=== PATIENT | male | born 1955 | race Caucasian/White ===

== ENCOUNTER → 2020-04-07 11:34 | Outpatient (BNVA) | payer OTHER, SELFPAY | PROVIDERS: Family Provider Family Medicine; PCP Family Medicine; Visit Provider Family Medicine | DX: Z20.828 Contact with and (suspected) exposure to other viral communicable diseases (principal) | CPT/HCPCS: 87635 ==

== ENCOUNTER 2020-11-30 12:12 | Emergency (ER) | payer OTHER, SELFPAY ==
[2020-11-30 12:28] VITALS: BP 147/51; PULSE 75; RESP 20; TEMP 36.7; O2SAT 96; BMI 31.9
--- NOTE | 2020-11-30 12:52 | XR_ITS ---
WS: [id number] Exam: XR chest 1V portable [id number] Date/Time of Exam: 11/30/2020 12:56 PM Reason For Exam: reduced breath sounds/ copd Comparison 06/05/2019. The lungs are fully inflated and clear. Normal cardiomediastinal structures for technique. No pleural effusions. Several old right-sided rib fractures. XR/XR chest 1V portable [id number] IMPRESSION: 1. No acute cardiopulmonary finding. No change.
--- NOTE | 2020-11-30 12:53 | ECG_ITS ---
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 Measurements Intervals [place] Rate: 62 P: [place]: QRS: 37 QRSD: 86 T: 30 QT: 337 QTc: 345 Interpretive Statements ATRIAL FIBRILLATION Compared to ECG 06/05/2019 16:23:57 Myocardial infarct finding no longer present Electronically Signed On 11-30-2020 17:31:09 CDT by Rufus Hernandez M.D. [id number]
--- NOTE | 2020-11-30 12:55 | W.ED.GENADLT ---
HPI - General Adult General: Chief complaint: General Medical Stated complaint: dizzy, high heart rate Time Seen by Provider: 11/30/20 12:43 History of Present Illness: HPI narrative: The patient is a 65-year-old male with past medical history A. fib on Xarelto, COPD, hypertension. He comes to the ER complaining he feels slightly dizzy and had an episode of heart rate where his heart was in the 150s for a very short episode this morning. 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 He also admits to having occasional cold sweats and using his inhaler more frequently. Severity: mild Relieving factors: rest Exacerbating factors: other (Exertion) Associated symptoms: Reports palpitations; Deny chest pain, confusion, dyspnea, headache(s) or rash Review of Systems General: Reports: 10 or more systems reviewed and unremarkable except in HPI and below Const: Reports: fatigue Eyes: Denies: change in vision, blurry vision or eye redness ENMT: Denies: throat pain, swelling of lips/tongue, ear or mastoid pain or nasal congestion Card: Reports: palpitations; Denies: chest pain Resp: Denies: dyspnea, productive cough or non-productive cough GI: Denies: abdominal pain, diarrhea or GI cramping : Denies: flank pain, urinary frequency or urinary urgency Musc: Denies: neck pain, back pain, extremity pain, joint pain, joint redness, limited range of motion or muscle weakness Skin/Breast: Denies: rash, pruritus, erythema, skin pain or skin tenderness Neuro: Denies: headache(s), numbness in extremities, weakness in extremities, sensory changes, difficulty walking, dizziness, confusion or Slurred speech present Psych: Denies: anxiety or depression Endo: Denies: polyuria All/Imm: Denies: urticaria, throat swelling or tongue swelling PFSH ED PFSH: Medical History Alcohol dependence Anticoagulation adequate Asthma Atrial fibrillation Hyperlipidemia Obesity PTSD (post-traumatic stress disorder) Sleep apnea Surgical History H/O arthroscopic knee surgery H/O hernia repair History of appendectomy Family History Mother CAD (coronary artery disease) Other Congestive cardiac failure Social History Smoking and tobacco status: never smoked Alcohol intake: current Alcohol intake frequency: 3 or more drinks per day Lives independently: Yes Household members: spouse Housing: House Marital status: Physical Exam Const: COMMON NORMALS: no acute distress, average body habitus, patient oriented x3, no limitations, healthy appearing, alert and well nourished GENERAL APPEARANCE: cooperative, comfortable, well kempt and well developed ORIENTATION/CONSCIOUSNESS: Yes awake, Yes oriented to person, Yes oriented to place and Yes oriented to time HENMT: COMMON NORMALS: normocephalic, external ears normal and Normal external nose present HEAD & SCALP: normal to inspection and normocephalic NOSE: Normal external nose present EXTERNAL EAR: Yes external ears normal MOUTH: Normal oral and palatal mucosa present THROAT: posterior oropharynx normal Eye: COMMON NORMALS: Equal, round and reactive pupils present and EOMs intact bilaterally GENERAL EYE: appearance normal, both eyes and all related structures PUPIL: Yes Equal, round and reactive pupils present Neck/C-Spine: COMMON NORMALS: full ROM, no lymphadenopathy, no meningeal signs and no JVD GENERAL: Yes normal visual inspection Lymph: LYMPHATIC: no lymphadenopathy noted Chest: COMMONS NORMALS: normal inspection of the chest and normal palpation of entire chest wall Resp: COMMON NORMALS: normal respiratory effort, No retractions, No use of accessory muscles, clear to auscultation bilaterally and percussion normal EFFORT & INSPECTION: Yes able to speak in complete sentences AUSCULTATION: clear to auscultation bilaterally PERCUSSION: percussion normal Cardio: COMMON NORMALS: no JVD, regular rate, S1 normal heart sound present, S2 normal heart sound present and Peripheral pulses 2+ throughout RATE: regular rate RHYTHM: abnormal rhythm irregularly irregular HEART SOUNDS: S1 normal heart sound present and S2 normal heart sound present PERIPHERAL PULSES: Peripheral pulses 2+ throughout GI: COMMON NORMALS: Normal to inspection, nondistended, normoactive bowel sounds present, Soft to palpation, non-tender and no masses INSPECTION: Yes normal to inspection PALPATION: Yes Soft to palpation : COMMON NORMALS: Yes no CVA tenderness BLADDER/KIDNEY EXAM: Yes no CVA tenderness Back/Pelvis: COMMON NORMALS: no CVA tenderness, thoracic and lumbar spine normal to inspection, no thoracic nor lumbar tenderness and thoraco-lumbar ROM normal Extremity: COMMON NORMALS: normal to inspection, full ROM, capillary refill normal, no joint enlargement and no pedal edema GENERAL: Yes normal exam except as noted Neuro: COMMON NORMALS: patient oriented x3, CN's II-XII intact bilaterally, moves all extremities, no focal motor deficits, no sensory deficits noted and gait normal SENSORIUM/ORIENTATION: Yes alert, Yes oriented to person, Yes oriented to place and Yes oriented to time MENINGEAL SIGNS: Yes no meningeal signs Psych: COMMON NORMALS: mental status grossly normal, Normal thought process present, cooperative, normal affect and speech normal APPEARANCE: Yes well kempt ATTITUDE: Yes calm SPEECH: Yes normal speech THOUGHT PROCESS: Normal thought process present Skin: COMMON NORMALS: no rashes or lesions noted GENERAL SKIN EXAM: no rashes or lesions noted Course Vital Signs: Vital signs: Vital Signs Temperature 98.1 F 11/30/20 12:28 Pulse Rate 62 11/30/20 14:37 Respiratory Rate 15 11/30/20 14:35 Blood Pressure 149/96 11/30/20 12:57 Pulse Oximetry 97 11/30/20 14:35 MDM - General Adult MDM Narrative: Medical decision making narrative: Patient came in complaining of fatigue and weakness likely related to over exerting himself during a move for the past week. He complained of a significant episode of leg cramps as well. His CK is mildly elevated. He likely had rhabdo and is recovering from this. Recommended he drink fluids and rest. Also recommended he check his pulse with a pulse oximeter regularly as he had an episode of tachycardia today that went away when he sat down. It was a very short episode and he was asymptomatic of it. He has an appointment with cardiology in the next 2 weeks which is appropriate. ER with worsening symptoms at any time Lab Data: Labs: Lab Results 11/30/20 11/30/20 11/30/20 Range/Units 12:53 13:13 13:13 WBC 6.4 (4.0-10.0) 10^3/ uL RBC 4.83 (4.1-5.3) 10^6/u L Hgb 15.3 (11.7-16.6) g/dL Hct 44.6 (42.0-52.0) % MCV 92.3 (80-94) fL MCH 31.7 (28.0-34.0) pg MCHC 34.3 (30.0-36.0) g/dL RDW 12.2 (12.1-15.1) % Plt Count 148 (130-400) 10^3/c mm MPV 10.8 H (7.4-10.4) fL Neut % (Auto) 55.4 % Lymph % (Auto) 30.0 % [place] % (Auto) 11.3 % Eos % (Auto) 1.9 % Baso % (Auto) 1.1 % Neut # (Auto) 3.57 (1.8-7.7) 10^3/u L Lymph # (Auto) 1.9 (0.8-4.8) 10^3/u L [place] # (Auto) 0.7 (0.2-0.9) 10^3/u L Eos # (Auto) 0.1 (0.0-0.8) 10^3/u L Baso # (Auto) 0.1 (0.0-0.1) 10^3/u L Nucleated RBC % (a uto) 0 % Nucleated RBCs # 0.0 /100WBC D-Dimer (0-0.59) ug/mIFE U Sodium 132 L (136-145) mmol/L Potassium 4.1 (3.5-5.1) mmol/L Chloride 96 L (98-107) mmol/L Carbon Dioxide 25 (22-29) mmol/L Anion Gap 15.1 (5-19) BUN 10 (8-23) mg/dL Creatinine 0.8 (0.7-1.2) mg/dL GFR Calculation 97.6 (90-130) mL/min Glucose 88 (65-115) mg/dL Calculated Osmolal ity 272 L (285-295) mOsm/k g Calcium 9.1 (8.5-10.5) mg/dL Total Bilirubin 0.6 (0.15-1.2) mg/dL AST 40 (0-40) U/L ALT 34 (0-41) U/L Alkaline Phosphata se 58 (40-130) IU/L Creatine Kinase 603 H* (39-308) U/L Troponin T Baselin e (0-15) ng/L NT-Pro-B Natriuret Pep 437 H (0-125) pg/mL Total Protein 6.7 (6.6-8.7) g/dL Albumin 4.6 (3.5-5.2) g/dL Globulin 2.1 (1.3-4.6) g/dL TSH 1.88 (0.27-4.20) uIU/ mL Urine Color Straw (Yellow) Urine Appearance Clear (CLEAR) Urine pH 7 (5-7) Ur Specific Gravit y 1.005 (1.005-1.030) Urine Protein Neg (Negative) Urine Glucose (UA) Norm (Normal) Urine Ketones Negative (Negative) Urine Blood Neg (Negative) Urine Nitrate Negative (Negative) Urine Bilirubin Neg (Negative) Urine Urobilinogen 1 H (Negative) mg/dL Ur Leukocyte Елена ase Negative (Negative) 11/30/20 11/30/20 Range/Units 13:13 13:13 WBC (4.0-10.0) 10^3/ uL RBC (4.1-5.3) 10^6/u L Hgb (11.7-16.6) g/dL Hct (42.0-52.0) % MCV (80-94) fL MCH (28.0-34.0) pg MCHC (30.0-36.0) g/dL RDW (12.1-15.1) % Plt Count (130-400) 10^3/c mm MPV (7.4-10.4) fL Neut % (Auto) % Lymph % (Auto) % [place] % (Auto) % Eos % (Auto) % Baso % (Auto) % Neut # (Auto) (1.8-7.7) 10^3/u L Lymph # (Auto) (0.8-4.8) 10^3/u L [place] # (Auto) (0.2-0.9) 10^3/u L Eos # (Auto) (0.0-0.8) 10^3/u L Baso # (Auto) (0.0-0.1) 10^3/u L Nucleated RBC % (a uto) % Nucleated RBCs # /100WBC D-Dimer 0.40 (0-0.59) ug/mIFE U Sodium (136-145) mmol/L Potassium (3.5-5.1) mmol/L Chloride (98-107) mmol/L Carbon Dioxide (22-29) mmol/L Anion Gap (5-19) BUN (8-23) mg/dL Creatinine (0.7-1.2) mg/dL GFR Calculation (90-130) mL/min Glucose (65-115) mg/dL Calculated Osmolal ity (285-295) mOsm/k g Calcium (8.5-10.5) mg/dL Total Bilirubin (0.15-1.2) mg/dL AST (0-40) U/L ALT (0-41) U/L Alkaline Phosphata se (40-130) IU/L Creatine Kinase (39-308) U/L Troponin T Baselin e 6 (0-15) ng/L NT-Pro-B Natriuret Pep (0-125) pg/mL Total Protein (6.6-8.7) g/dL Albumin (3.5-5.2) g/dL Globulin (1.3-4.6) g/dL TSH (0.27-4.20) uIU/ mL Urine Color (Yellow) Urine Appearance (CLEAR) Urine pH (5-7) Ur Specific Gravit y (1.005-1.030) Urine Protein (Negative) Urine Glucose (UA) (Normal) Urine Ketones (Negative) Urine Blood (Negative) Urine Nitrate (Negative) Urine Bilirubin (Negative) Urine Urobilinogen (Negative) mg/dL Ur Leukocyte Елена ase (Negative) Discharge Plan Discharge Patient Disposition: Home Clinical Impression: Elevated CK, Atrial fibrillation Condition: Stable Prescriptions: No Action digoxin 250 mcg (0.25 mg) tablet 250 mcg PO DAILY@0530 RF: 0 Xarelto 20 mg tablet 20 mg PO DAILY RF: 0 albuterol sulfate [ProAir HFA] 90 mcg/actuation HFA aerosol inhaler 2 puff INHALATION QID RF: 0 Symbicort 80-4.5 mcg/actuation HFA aerosol inhaler 2 puff INHALATION BID RF: 0 atorvastatin 40 mg Tablet 20 mg PO DAILY RF: 0 ropinirole 1 mg Tablet 1 mg PO BEDTIME RF: 0 cyanocobalamin (vitamin B-12) 100 mcg Tablet 100 mcg PO DAILY RF: 0 thiamine HCl (vitamin B1) 100 mg Tablet 100 mg PO DAILY RF: 0 fluoxetine 20 mg Capsule 20 mg PO DAILY RF: 0 fluticasone propionate 50 mcg/actuation [place],Suspension 1 spray INTRANASAL DAILY RF: 0 acamprosate 333 mg Tablet,Delayed Release (Dr/Ec) 666 mg PO BID RF: 0 cholecalciferol (vitamin D3) 100 mcg (4,000 unit) Tablet 100 mcg PO DAILY RF: 0 metoprolol tartrate 50 mg Tablet 25 mg PO BID RF: 0 Discharge Orders: Discharge ED (Routine); Ordered 11/30/20 Ordered By: Jose Enrique Benton Discharge Diet: Advance as tolerated Discharge Activity: Limit activity as instructed Patient Instructions: Atrial Fibrillation (ED), Rhabdomyolysis (ED), Opioid Safety Activity Restrictions/Additional Instructions: You have come in complaining of muscle aches and weakness and fatigue. This is likely from overexerting yourself for the past week during the move. Please drink lots of fluids and rest for the next couple days and have your creatinine kinase level checked at your primary care doctors later this week. Return to the ER at anytime with worsening symptoms. You have also had an episode of elevated heart rate. Please continue to check with your pulse oximeter and if it is high or you are having symptoms please return to the ER. Otherwise follow-up with your client services coordinator in the next week or 2 as you already have scheduled. Coding Level of Care Code ED Cost Engineer for [employer] Exam Comprehensive
[2020-11-30 12:57] VITALS: BP 149/96; PULSE 69; RESP 18; O2SAT 98
[2020-11-30 13:04] LABS: Add Urine Microscopic? NO; Charge for UA Resulting for Rev
[2020-11-30] MEDS: sodium chloride 0.9% 1,000 ML 999 ML IV (13:17)
[2020-11-30 13:22] LABS: Basophils # 0.1 10^3/uL (0.0-0.1); Basophils % 1.1 %; Eosinophils # 0.1 10^3/uL (0.0-0.8); Eosinophils % 1.9 %; Hematocrit 44.6 % (42.0-52.0); Hemoglobin 15.3 g/dL (11.7-16.6); Lymphocytes # 1.9 10^3/uL (0.8-4.8); Mean Corpuscular HGB Conc 34.3 g/dL (30.0-36.0); Mean Corpuscular Hemoglobin 31.7 pg (28.0-34.0); Mean Corpuscular Volume 92.3 fL (80-94); Mean Platelet Volume 10.8 fL (7.4-10.4); Monocytes # 0.7 10^3/uL (0.2-0.9); Monocytes % 11.3 %; Neutrophils # 3.57 10^3/uL (1.8-7.7); Neutrophils % 55.4 %; Nucleated Red Blood Cells % 0 %; Platelet Count 148 10^3/cmm (130-400); Red Blood Count 4.83 10^6/uL (4.1-5.3); Red Cell Distribution Width 12.2 % (12.1-15.1); White Blood Count 6.4 10^3/uL (4.0-10.0)
[2020-11-30 13:23] LABS: Bilirubin Urine Neg (Negative); Blood Urine Neg (Negative); Glucose Urine UA Norm (Normal); Ketones Urine Negative (Negative); Leukocyte Esterase Urine Negative (Negative); Nitrate Urine Negative (Negative); Protein Urine Neg (Negative); Specific Gravity, Urine 1.005 (1.005-1.030); Urine Appearance Clear (CLEAR); Urine Color Straw (Yellow); Urobilinogen Urine 1 mg/dL (Negative); pH Urine 7 (5-7)
[2020-11-30 13:52] LABS: Troponin(5th) Baseline 6 ng/L (0-15)
[2020-11-30 14:00] LABS: Alanine Aminotransferase 34 U/L (0-41); Albumin Level 4.6 g/dL (3.5-5.2); Alkaline Phosphatase 58 IU/L (40-130); Anion Gap 15.1 (5-19); Aspartate Amino Transferase 40 U/L (0-40); Blood Urea Nitrogen 10 mg/dL (8-23); Calcium 9.1 mg/dL (8.5-10.5); Carbon Dioxide 25 mmol/L (22-29); Chloride 96 mmol/L (98-107); Globulin 2.1 g/dL (1.3-4.6); Glomerular Filtration Rate 97.6 mL/min (90-130); Glucose 88 mg/dL (65-115); NT Pro B Type Natriuretic Pept 437 pg/mL (0-125); Osmolality Calculated 272 mOsm/kg (285-295); Potassium 4.1 mmol/L (3.5-5.1); Sodium 132 mmol/L (136-145); Thyroid Stimulating Hormone 1.88 uIU/mL (0.27-4.20); Total Bilirubin 0.6 mg/dL (0.15-1.2); Total Protein 6.7 g/dL (6.6-8.7)
[2020-11-30 14:07] LABS: Creatine Phosphokinase 603 U/L (39-308)
[2020-11-30 14:35] VITALS: PULSE 74; RESP 15; O2SAT 97
[2020-11-30 14:37] VITALS: PULSE 62
--- NOTE | 2020-11-30 14:53 | ECG_ITS ---
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 Measurements Intervals [place] Rate: 78 P: [place]: QRS: 54 QRSD: 80 T: 28 QT: 342 QTc: 390 Interpretive Statements ATRIAL FIBRILLATION Compared to ECG 11/30/2020 12:39:24 No significant changes Electronically Signed On 11-30-2020 17:37:42 CDT by Rufus Hernandez M.D. [email or web address]/store/[id number]
[2020-11-30 15:12] VITALS: BP 143/83; PULSE 73; RESP 18; O2SAT 93
== END 2020-11-30 15:15 | disposition home or self-care (01) ==
PROVIDERS: Emergency Provider Family Medicine
DX: I48.91 Unspecified atrial fibrillation (principal); R79.9 Abnormal finding of blood chemistry, unspecified; E78.5 Hyperlipidemia, unspecified
CPT/HCPCS: 71045; 80053; 81003; 82550; 83880; 84443; 84484; 85025; 85378; 93005; 96360; 99284; J7030

== ENCOUNTER 2021-02-22 08:51 | Outpatient (CLI) | payer OTHER, SELFPAY ==
[2021-02-22 08:57] VITALS: BMI 33.3
--- NOTE | 2021-02-22 09:17 | NMCV_ITS ---
NM evan perf SPECT r/s* [id number] Kris Sheehan Age: 65 Gender: M : 1955 Exam Date: 02/22/2021 10:16 Ordering Phys: Paula Nick MD ([email or web address]) Technologist: BERNICE Omer Exam Location: [facility] Indications: SHORTNESS OF BREATH STRESS TEST Please [facility] IMAGE PROTOCOL Rest/Stress 1 Exercise Day Radiopharmaceutical Dose (mCi) Administration Site Administered by Rest: Tc-99m 11.0 IV BERNICE Ch Sestamibi Stress:Tc-99m 32.8 IV BERNICE Omer Sestamikam Rest: 22-Feb-2021 60 Discovery 630 Stress: 22-Feb-2021 15 Discovery 630 Radiopharmaceutical was injected at 96 % maximum heart rate. Supine position only as patient was unable to lay prone. SPECT RESULTS Technical Quality: Excellent Raw Data Analysis: Normal Image Corrections: No attenuation or motion correction applied Summed Stress Score: 0 Summed Rest Score: 2 Summed Difference Score: 0 PERFUSION FINDINGS Small sized perfusion abnormality of mild severity of apical inferior and apical lateral flanagan in rest images with improved tracer uptake in stress images. This is likely suggestive of attenuation artifact. FUNCTIONAL RESULTS (calculated via Gated SPECT) Stress Image LV EF (%): 63 Stress EDV (mL):99 TID: 0.85 Stress ESV (mL):37 FUNCTIONAL FINDINGS: The left ventricle is normal in size. Transient Ischemia Dilatation of 0.85. There is normal left ventricular systolic function. The left ventricular ejection fraction is normal with a value of 63%. There is normal left ventricular wall thickening with no regional wall motion abnormality. Normal end siastolic and end systolic volumes. IMPRESSIONS 1. Myocardial perfusion imaging is normal. Attenuation artifact noted in apical inferior and apical lateral flanagan. 2. Overall left ventricular systolic function is normal without regional wall motion abnormalities. 3. The left ventricular ejection fraction is normal with a value of 63%. 4. Scan indicates low risk for cardiac events. Paula Nick MD (Electronically Signed) Final Date: 25 February 2021 07:30 S
--- NOTE | 2021-02-22 09:17 | ECG_ITS ---
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 Interpretive Statements NAME OF STUDY: EXERCISE SESTAMIBI STRESS TEST INDICATION: Shortness of Breath Baseline blood pressure of 128/91 mm Hg, heart rate of 97 beats per minute and oxygen saturation of 98%. EKG showed atrial fibrillation. Right axis deviation poor anterior R wave progression. Nonspecific ST-T wave changes. The patient exercised for 5 minutes 44 seconds on a standard Mario protocol. Patient attained a maximum heart rate of 169 beats per minute(107% of the maximum predicted heart rate) with a blood pressure at the peak exercise of 142/80 mm Hg. The EKG at the peak exercise revealed atrial fibrillation with rapid response with no significant ST-T wave changes. Patient did not have any chest pain or any significant arrhythmis with the exercise. The study was terminated due to exertional fatigue and shortness of breath. During the recovery phase, there were no new changes. Blood pressure at the end of the recovery phase was 135/91 mm Hg with a heart rate of 117 beats per minute and oxygen saturation 96%. CONCLUSION: 1. Normal EKG response to treadmill exercise. 2. No exercise-induced chest pain or cardiac arrhythmia 3. Fair exercise tolerance, attained a maximum of 7 METs. Maximum VO2 of 24.5 mL/kg/min. 4. Baseline normal blood pressure with normal response to exercise. 5. Perfusion scan will be documented separately. Electronically Signed On 02-25-2021 14:34:26 CDT by Paula Nick M.D. [id number]
[2021-02-22 11:09] VITALS: BP 135/91; PULSE 102
== END 2021-02-22 08:52 | disposition home or self-care (01) ==
LOC: CDL 08:54
PROVIDERS: PCP Family Medicine; Visit Provider Internal Medicine Cardiovascular Disease
DX: R06.00 Dyspnea, unspecified (principal); I10 Essential (primary) hypertension; I48.91 Unspecified atrial fibrillation; R06.02 Shortness of breath
CPT/HCPCS: 78452; 93017; A9500

== ENCOUNTER → 2021-08-29 14:30 | Outpatient (BNVA) | payer OTHER, SELFPAY | PROVIDERS: PCP Family Medicine; Visit Provider Internal Medicine Cardiovascular Disease | DX: Z53.9 Procedure and treatment not carried out, unspecified reason (principal) | CPT/HCPCS: 99999 ==

== ENCOUNTER → 2021-10-06 14:46 | Outpatient (BNVA) | payer OTHER, SELFPAY | PROVIDERS: PCP Family Medicine; Visit Provider Internal Medicine Cardiovascular Disease | DX: I48.11 Longstanding persistent atrial fibrillation (principal); G47.30 Sleep apnea, unspecified; E78.5 Hyperlipidemia, unspecified; I10 Essential (primary) hypertension | CPT/HCPCS: 99214 ==

== ENCOUNTER 2022-07-20 07:03 | Outpatient (CLI) | payer OTHER, SELFPAY ==
--- NOTE | 2022-07-20 | US_ITS ---
WS: [id number] RIGHT UPPER QUADRANT ULTRASOUND HISTORY: ELEVATED LFT'S COMPARISON: None available. Liver: 14.3 cm in length. Normal size with moderate attenuation and coarse echotexture. Focal fatty s paring adjacent to the gallbladder is a typical location. No bile duct dilatation. Portal Vein: Normal hepatopetal flow with monophasic waveform. Gallbladder: Well distended gallbladder with cholelithiasis. There is a large stone measuring 2.2 cm. No pericholecystic fluid. Gallbladder wall is normal. CBD: 0.3 cm Pancreas: Very poorly visualized due to body habitus. Right kidney: 10.3 cm in length. Normal size and echogenicity. No hydronephrosis or mass. Aorta and IVC: Unremarkable abdominal aorta and IVC. No ascites. US/US abdomen limited [id number] IMPRESSION: 1. Cholelithiasis without acute cholecystitis. 2. Normal size liver with moderate hepatic steatosis. Focal fatty sparing rosi cent to the gallbladder.
== END 2022-07-20 07:04 | disposition home or self-care (01) ==
PROVIDERS: PCP Family Medicine; Visit Provider Family Medicine
DX: K80.80 Other cholelithiasis without obstruction (principal)
CPT/HCPCS: 76705

== ENCOUNTER 2022-08-29 14:37 | Outpatient (CLI) | payer OTHER, SELFPAY | END 2022-08-29 14:38 | disposition home or self-care (01) | LOC: RT 14:38 | PROVIDERS: PCP Family Medicine; Visit Provider Registered Nurse | DX: Z01.89 Encounter for other specified special examinations (principal) | CPT/HCPCS: 94010; 94729 ==

== ENCOUNTER → 2023-07-02 09:23 | Outpatient (BNVA) | payer OTHER, SELFPAY | PROVIDERS: PCP Family Medicine; Visit Provider Specialist | DX: M17.12 Unilateral primary osteoarthritis, left knee | CPT/HCPCS: 20610; 73560; 73565; 99204 ==

== ENCOUNTER → 2023-07-03 12:17 | Outpatient (BNVA) | payer OTHER, SELFPAY | PROVIDERS: PCP Family Medicine; Referring Provider Family Medicine; Visit Provider Internal Medicine Cardiovascular Disease | DX: R07.9 Chest pain, unspecified (principal); I48.11 Longstanding persistent atrial fibrillation; Z79.01 Long term (current) use of anticoagulants; E78.5 Hyperlipidemia, unspecified; I10 Essential (primary) hypertension; E66.9 Obesity, unspecified; G47.30 Sleep apnea, unspecified; Z68.35 Body mass index [BMI] 35.0-35.9, adult | CPT/HCPCS: 93005; 99214 ==

== ENCOUNTER → 2023-10-23 16:57 | Outpatient (BNVA) | payer MEDICARE, OTHER, SELFPAY | PROVIDERS: PCP Family Medicine; Visit Provider Nurse Practitioner Family | DX: I10 Essential (primary) hypertension (principal); Z79.01 Long term (current) use of anticoagulants; R53.83 Other fatigue; E55.9 Vitamin D deficiency, unspecified; E78.5 Hyperlipidemia, unspecified; I48.91 Unspecified atrial fibrillation; Z79.899 Other long term (current) drug therapy | CPT/HCPCS: 80053; 80061; 80162; 82306; 84403; 84443; 85025 ==

== ENCOUNTER → 2023-10-29 12:44 | Outpatient (BNVA) | payer MEDICARE, OTHER, SELFPAY | PROVIDERS: PCP Family Medicine; Visit Provider Specialist | DX: M17.12 Unilateral primary osteoarthritis, left knee (principal); W57.XXXA Bitten or stung by nonvenomous insect and other nonvenomous arthropods, initial encounter | CPT/HCPCS: 86003; 86008; 86618; 86666; 86757; 99213 ==

== ENCOUNTER → 2024-01-01 12:02 | Outpatient (BNVA) | payer MEDICARE, OTHER, SELFPAY | PROVIDERS: PCP Nurse Practitioner Family; Visit Provider Internal Medicine Cardiovascular Disease | DX: I48.11 Longstanding persistent atrial fibrillation (principal); Z79.01 Long term (current) use of anticoagulants; E78.5 Hyperlipidemia, unspecified; I10 Essential (primary) hypertension; E66.9 Obesity, unspecified; Z68.35 Body mass index [BMI] 35.0-35.9, adult; W57.XXXA Bitten or stung by nonvenomous insect and other nonvenomous arthropods, initial encounter; Y99.9 Unspecified external cause status; G47.30 Sleep apnea, unspecified; R53.82 Chronic fatigue, unspecified | CPT/HCPCS: 99213 ==

== ENCOUNTER → 2024-01-11 10:37 | Outpatient (BNVA) | payer MEDICARE, OTHER, SELFPAY | PROVIDERS: PCP Family Medicine; Visit Provider Specialist | DX: M17.12 Unilateral primary osteoarthritis, left knee (principal); Z71.89 Other specified counseling | CPT/HCPCS: 20610; J7318 ==

== ENCOUNTER 2024-03-17 09:42 | Outpatient (CLI) | payer OTHER, SELFPAY ==
--- NOTE | 2024-03-17 09:55 | XR_ITS ---
WS: [id number] Exam: XR sinus min 3V* [id number] Date/Time of Exam: 03/17/2024 10:00 AM Reason For Exam: SINUSITIS The paranasal sinuses are clear. No soft tissue masses or fluid levels are identified. Bony structure s are intact. XR/XR sinus min 3V* [id number] IMPRESSION: 1. Negative paranasal sinuses.
== END 2024-03-17 09:43 | disposition home or self-care (01) ==
PROVIDERS: PCP Family Medicine; Visit Provider Nurse Practitioner Family
DX: J01.90 Acute sinusitis, unspecified (principal)
CPT/HCPCS: 70220

== ENCOUNTER 2024-07-02 11:10 | Outpatient (CLI) | payer OTHER, SELFPAY ==
--- NOTE | 2024-07-02 11:18 | MR_ITS ---
WS: [id number] MRI RIGHT KNEE HISTORY: RIGHT KNEE PAIN COMPARISON: Radiograph 06/05/2024 Anterior cruciate ligament: Intact. Posterior cruciate ligament: Intact. Medial collateral ligament: Increased T2 signal surrounding the MCL. No full-thickness tear. Central portion of the meniscus is small caliber and atrophied but not completely torn. Posterior lateral corner structures: Intact. Medial menisci: Intact. Normal signal, size and shape. Lateral meniscus: Intact. Normal signal, size and shape. Extensor mechanism: Distal quadriceps tendon and patellar tendons are intact. Fluid and soft tissue: Small suprapatellar joint effusion. Small amount of edema along the medial fem oral condyle. No Mcnamara's cyst. Mild fluid distention of the popliteus bursa. Osseous and articular structures: Patellofemoral compartment: Normal. Medial compartment: Mild narrowing of the medial compartment. Marrow edema medial tibial plateau rosi cent to the MCL. There is additional marrow edema with subchondral cysts in the nonweightbearing surf joseph of the posterior medial femoral condyle. Focal subchondral edema femoral condyle near the menisca l capsular junction. Increased intermediate signal in the at the meniscocapsular junction posterior h orn medial meniscus. This is also at the site of edema of the medial collateral ligament. Lateral compartment: Unremarkable. MR/MR knee RT wo con* [id number] IMPRESSION: 1. Partial meniscocapsular separation posterior horn medial meniscus. Intermed iate signal at the meniscocapsular junction with abnormal signal in the MCL and adjacent marrow edema in the femoral condyle and tibial plateau. Small amount of adjacent pericapsular edema. 2. Partial tear versus high-grade sprain MCL at the site of meniscocapsular se paration. 3. Additional edema and subchondral cystic changes in the nonweightbearing surendra face of the posterior medial femoral condyle which may not be related to the ac leonidas recent injury. 4. Distention of the popliteus bursa.
[2024-07-02 12:20] LABS: Digoxin 1.3 ng/mL (0.6-1.2)
== END 2024-07-02 11:11 | disposition home or self-care (01) ==
LOC: RAD 11:13
PROVIDERS: Absent Provider Nurse Practitioner Family; PCP Nurse Practitioner; Visit Provider Nurse Practitioner
DX: I48.11 Longstanding persistent atrial fibrillation (principal); S83.411A Sprain of medial collateral ligament of right knee, initial encounter; M17.11 Unilateral primary osteoarthritis, right knee; X58.XXXA Exposure to other specified factors, initial encounter; E78.5 Hyperlipidemia, unspecified; E66.09 Other obesity due to excess calories; Z68.31 Body mass index [BMI] 31.0-31.9, adult; G47.30 Sleep apnea, unspecified; R53.82 Chronic fatigue, unspecified; I10 Essential (primary) hypertension; Z91.014 Allergy to mammalian meats
CPT/HCPCS: 73560; 73565; 73721; 80162; 99213; 99214

== ENCOUNTER → 2024-07-08 09:08 | Outpatient (BNVA) | payer OTHER, SELFPAY | PROVIDERS: PCP Nurse Practitioner; Visit Provider Nurse Practitioner Family | DX: I48.11 Longstanding persistent atrial fibrillation (principal) | CPT/HCPCS: 80162 ==

== ENCOUNTER → 2024-08-04 08:12 | Outpatient (BNVA) | payer OTHER, SELFPAY | PROVIDERS: PCP Nurse Practitioner; Visit Provider Specialist | DX: M17.12 Unilateral primary osteoarthritis, left knee (principal) | CPT/HCPCS: 73560; 73565; 99214 ==

== ENCOUNTER 2024-08-26 13:59 | Outpatient (CLI) | payer OTHER, SELFPAY ==
--- NOTE | 2024-08-26 15:45 | CT_ITS ---
WS: [id number] CT LEFT KNEE, NONCONTRAST [facility] TECHNIQUE: Noncontrast CT of the LEFT knee to include the LEFT hip and ankle. CLINICAL INFORMATION: M17.12 - Unilateral primary osteoarthritis, left knee COMPARISON: None. DLP: 953.[address] scans at [facility] use at least one of these dose optimization techniques: automated exposure control; mA and/or kV adjustment per patient size (includes targeted exams where dose is matched to clinical indication); or iterative reconstruction. FINDINGS: Small fat-containing RIGHT inguinal hernia. Sigmoid diverticulosis. Enlarged prostate measures 4.1 x 5.4 cm. Advanced tricompartmental arthritis LEFT knee worse in the medial joint compartment with rcco-mw-ezjw articulation. Hypertrophic patella. Small suprapatellar effusion. Vascular calcification. CT/CT knee LT CIRO [id number] IMPRESSION: Images obtained for preoperative purposes.
== END 2024-08-26 14:00 | disposition home or self-care (01) ==
LOC: RAD 14:00
PROVIDERS: PCP Nurse Practitioner; Visit Provider Specialist
DX: M17.12 Unilateral primary osteoarthritis, left knee (principal); I48.11 Longstanding persistent atrial fibrillation; R93.1 Abnormal findings on diagnostic imaging of heart and coronary circulation; K40.90 Unilateral inguinal hernia, without obstruction or gangrene, not specified as recurrent; K57.30 Diverticulosis of large intestine without perforation or abscess without bleeding; N40.0 Benign prostatic hyperplasia without lower urinary tract symptoms; R93.6 Abnormal findings on diagnostic imaging of limbs
CPT/HCPCS: 73700; 93005

== ENCOUNTER → 2024-09-19 09:48 | Outpatient (BNVA) | payer OTHER, SELFPAY | PROVIDERS: PCP Nurse Practitioner; Visit Provider Family Medicine | DX: Z01.818 Encounter for other preprocedural examination (principal) | CPT/HCPCS: 80053; 81003; 85007; 85027 ==

== ENCOUNTER → 2024-10-02 06:09 | Day surgery (SDC) | payer OTHER, SELFPAY ==
[2024-10-02 06:43] VITALS: BP 126/80; PULSE 85; RESP 18; TEMP 36.2; O2SAT 94; BMI 33.3
--- NOTE | 2024-10-02 09:31 | PM.MISC ---
Miscellaneous Note Purpose of Documentation: Cancellation of surgery Note: Patient presented with a hematoma along the anterior medial border of the tibia. This was proximal enough to potentially be involved in the distal aspect of the incision, and it was noted to have some redness consistent possibly with early cellulitis. Patient noted that the injury occurred approximately month and a half prior to today, but he was advised of the risks of proceeding and that this was not recommended. He was in agreement and was discharged home for planning for the total knee in the future.
== END ==
PROVIDERS: PCP Nurse Practitioner; Visit Provider Specialist
PROC: 8E0Y0CZ Robotic Assisted Procedure of Lower Extremity, Open Approach (ICD-10-PCS; CPT 27447; principal; 2024-10-02 13:30)
DX: Z53.8 Procedure and treatment not carried out for other reasons (principal); S80.10XA Contusion of unspecified lower leg, initial encounter; X58.XXXA Exposure to other specified factors, initial encounter

== ENCOUNTER → 2025-01-19 13:36 | Outpatient (BNVA) | payer OTHER, SELFPAY | PROVIDERS: PCP Nurse Practitioner; Visit Provider Internal Medicine Cardiovascular Disease | DX: I48.11 Longstanding persistent atrial fibrillation (principal); Z79.01 Long term (current) use of anticoagulants; E78.5 Hyperlipidemia, unspecified; G47.30 Sleep apnea, unspecified; R03.0 Elevated blood-pressure reading, without diagnosis of hypertension; E66.812 Obesity, class 2; Z68.36 Body mass index [BMI] 36.0-36.9, adult | CPT/HCPCS: 99214 ==

== ENCOUNTER → 2025-02-02 10:13 | Outpatient (BNVA) | payer OTHER, SELFPAY | PROVIDERS: PCP Nurse Practitioner; Visit Provider Specialist | DX: M17.12 Unilateral primary osteoarthritis, left knee (principal); Z01.818 Encounter for other preprocedural examination | CPT/HCPCS: 36415; 73560; 73565; 80053; 81003; 85025; 99214 ==

== ENCOUNTER → 2025-02-10 08:43 | Outpatient (BNVA) | payer OTHER, SELFPAY | PROVIDERS: PCP Nurse Practitioner; Visit Provider Family Medicine | DX: Z01.818 Encounter for other preprocedural examination (principal) | CPT/HCPCS: 85007; 85027 ==

== ENCOUNTER 2025-02-11 10:14 | Outpatient (CLI) | payer OTHER, SELFPAY ==
--- NOTE | 2025-02-11 10:30 | CT_ITS ---
WS: [id number] CT LEFT KNEE, NONCONTRAST [facility] TECHNIQUE: Noncontrast CT of the LEFT knee to include the LEFT hip and ankle. CLINICAL INFORMATION: left knee pain DLP: 930.[address] scans at [facility] use at least one of these dose optimization techniques: automated exposure control; mA and/or kV adjustment per patient size (includes targeted exams where dose is matched to clinical indication); or iterative reconstruction. FINDINGS: Advanced tricompartmental arthritis LEFT knee worse in the medial joint compartment with sayc-zp-zjvp articulation. Hypertrophic changes along the joint line. Soft tissue edema. Hypertrophic patella. Moderate suprapatellar effusion. Vascular calcification. Small fat-containing RIGHT inguinal hernia. Sigmoid diverticulosis. Enlarged prostate measures 5.1 cm. Recommend correlation PSA. Indentation on the bladder. Recommend correlation for bladder outlet obstruction symptoms. CT/CT knee [facility] [id number] IMPRESSION: Images obtained for preoperative purposes.
== END 2025-02-11 10:15 | disposition home or self-care (01) ==
PROVIDERS: PCP Nurse Practitioner; Visit Provider Specialist
DX: M17.12 Unilateral primary osteoarthritis, left knee (principal); M22.8X2 Other disorders of patella, left knee; R60.0 Localized edema; M79.4 Hypertrophy of (infrapatellar) fat pad; I70.212 Atherosclerosis of native arteries of extremities with intermittent claudication, left leg; M89.48 Other hypertrophic osteoarthropathy, other site; K40.90 Unilateral inguinal hernia, without obstruction or gangrene, not specified as recurrent; N40.0 Benign prostatic hyperplasia without lower urinary tract symptoms
CPT/HCPCS: 73700

== ENCOUNTER 2025-02-17 09:50 | Observation (INO) | payer OTHER, MEDICARE, SELFPAY ==
[2025-02-17] VITALS (20 sets, daily range): BP systolic 99–146; BP diastolic 63–93; PULSE 79–102; RESP 15–18; TEMP 36.3–36.8; O2SAT 90–98; BMI 36.2
[2025-02-17] MEDS: acetaminophen 1,000 MG/100 ML PIGGYBACK 400 MG IV ×3 (06:21→20:43)
--- NOTE | 2025-02-17 06:56 | SUR.PREOP ---
Nerve block was performed in OPS to left knee by Dr Jackson using 30ml 0.5% Ropivicaine, 4mg decadron. Patient tolerated well.
--- NOTE | 2025-02-17 06:58 | ANES.PREANE2 ---
Pre-Anesthetic Assessment Height/Weight: Height 1.65 m Weight 98.883 kg Temp Pulse Resp BP Pulse Ox O2 Del Method 98 F 79 17 119/79 96 Room Air 02/17/25 06:11 02/17/25 06:11 02/17/25 06:11 02/17/25 06:11 02/17/25 06:11 02/17/25 06:17 Operation Date: 02/17/25 07:00 Proposed Procedures p David Robot Total Knee Arthroplasty(Left) - Ondina Mccracken MD Familial anesthetic complications: None Was Beta Gage taken within 24 hours: Yes Was Clonidine taken within 24 hours: N/A Last intake: Intake Last Liquid Date 02/16/25 Last Liquid Time 22:00 Last Solid Date 02/16/25 Last Solid Time 22:00 Social No alcohol and No tobacco Exam alert, oriented x 3, clear to auscultation bilaterally and regular rate & rhythm Airway Mallampati: Class IV Pulmonary Asthma and Sleep Apnea CV/HEM Atrial Fibrillation (last took blood thinner sunday night- will proceed with general) and Hypertension Anesthetic Plan ASA status: 3 Anesthesia: General and Regional (specify below) Medications/Allergies Home Medications ?Medication ?Instructions ?Recorded ?Confirmed ?Last Taken ?Type rivaroxaban 20 mg tablet (Xarelto) 20 mg PO DAILY 06/23/19 02/12/25 02/12/25 History atorvastatin 40 mg tablet 20 mg PO BEDTIME 11/30/20 02/17/25 02/16/25 History cyanocobalamin (vitamin B-12) 100 100 mcg PO DAILY 11/30/20 02/17/25 02/16/25 History mcg tablet fluoxetine 20 mg capsule 20 mg PO DAILY 11/30/20 02/17/25 02/16/25 History metoprolol tartrate 50 mg tablet 25 mg PO BID 11/30/20 02/17/25 02/17/25 History thiamine HCl (vitamin B1) 100 mg 100 mg PO DAILY 11/30/20 02/17/25 02/16/25 History tablet fluticasone 100 mcg-salmeterol 50 1 inh inhalation BID 02/28/21 02/17/25 02/16/25 History mcg/dose blistr powdr for inhalation (Wixela Inhub) albuterol sulfate 90 mcg/actuation 2 puff inhalation QID PRN 10/06/21 02/12/25 Unknown History aerosol inhaler (ProAir HFA) shortness of breath cholecalciferol (vitamin D3) 100 200 mcg PO DAILY 10/06/21 02/12/25 10/02/24 History mcg (4,000 unit) tablet fluticasone propionate 50 1 spray intranasal DAILY PRN 10/06/21 02/17/25 02/16/25 History mcg/actuation nasal allergies spray,suspension cetirizine 10 mg tablet 10 mg PO DAILY PRN allergies 10/23/23 02/17/25 02/16/25 History magnesium oxide 500 mg PO DAILY 10/23/23 02/17/25 02/16/25 History ropinirole 2 mg tablet 2 mg PO DAILY 10/23/23 02/17/25 02/16/25 History tiotropium bromide 18 mcg capsule 1 cap inhalation DAILY 10/23/23 02/17/25 02/16/25 History with inhalation device (Spiriva with HandiHaler) CPAP 01/01/24 02/02/25 Unknown History epinephrine 0.3 mg/0.3 mL 0.3 mg (0.3 mL) IM Q4H PRN 02/04/24 02/12/25 Unknown Rx injection, auto-injector (EpiPen anaphylaxis #2 ea 2-Danish) digoxin 250 mcg (0.25 mg) tablet 125 mcg (1/2 x 250 mcg (0.25 mg)) 07/02/24 02/17/25 02/16/25 Rx PO DAILY@0530 #90 tabs Allergies Allergy/AdvReac Type Severity Reaction Status Date / Time Alpha-Gal Allergy ADR-Gastrointestinal Verified 02/17/25 06:01 (Iuxeumgke-Cjlxp-9,3-Gala Upset Current Medications Generic Name Dose Route Start Last Admin Trade Name Freq PRN Reason Stop Dose Admin Sodium Chloride 1,000 mls @ 30 mls/hr 02/17/25 06:00 02/17/25 06:20 Sodium Chloride 0.9% IV 02/18/25 05:59 30 mls/hr .Q24H KOKI Administration PFSH Anesthesia Medical History Sleep apnea Atrial fibrillation Class 2 obesity due to excess calories without serious comorbidity with body mass index (BMI) of 36.0 to 36.9 in adult Hyperlipidemia PTSD (post-traumatic stress disorder) Alcohol dependence Asthma Anticoagulation adequate Surgical History History of appendectomy H/O arthroscopic knee surgery H/O hernia repair Family History Mother CAD (coronary artery disease) Other Congestive heart failure (CHF) Social History Smoking and tobacco/nicotine status: never used tobacco/nicotine Alcohol intake: current Alcohol intake frequency: 3 or more drinks per day Substance/Drug Use: never Lives independently: Yes Household members: spouse Housing: House Marital status: Data Anesthesia Cardiac Studies: Sestamibi Stress Test (Cardiology) 02/22/21 Anesthesia Procedures Nerve Block Nerve Block 1: Main Anesthesia: general anesthesia Time Out Performed: Yes Consent: requested by attending/covering physician, from patient, from other, risks and benefits reviewed and patient agrees to proceed Nerve block location: adductor canal (L) Anesthesia monitors applied: pulse oximetry, EKG, BP cuff and oxygen Nerve block position: supine Anesthetic Used: ropivicaine 0.5% (30 ml) and with decadron (4 mg) Ultrasound used to: recognize landmarks and visualize and ID femerol nerve Interscalene/Femoral BLK: 4 stimuplex 21 g needle used for position and inplane approach, visualize local anesthetic spread and no vascular puncture identified Injection: neg aspiration of heme Patient Tolerated Procedure: well Complications: none
--- NOTE | 2025-02-17 07:08 | P.HPUD_ITS ---
Surgery/Procedure H&P Update DATE OF PROCEDURE: February 17, 2025 DATE H&P PERFORMED: 02/10/25 H&P UPDATE INFORMATION: I have reviewed H&P completed within last 30 days, I have examined patient prior to procedure, No changes to prior documentation, H&P is in [facility] EMR on date indicated and Risks and benefits of the procedure reviewed PREOP DIAGNOSIS: Left knee osteoarthritis PLANNED PROCEDURE: Operation Date: 02/17/25 07:00 Proposed Procedures p David Robot Total Knee Arthroplasty(Left) - Ondina Mccracken MD Related Problem List Diagnoses 1. Primary osteoarthritis of right knee: Qualifiers: Osteoarthritis type: primary
[2025-02-17] MEDS: ceFAZolin 2,000 mg SDV 2000 MG IVP ×3 (07:13→23:46)
[2025-02-17] MEDS: tranexamic acid 1,000 mg/10mL SDV 1000 MG IV (07:30)
[2025-02-17] MEDS: ceFAZolin 2,000 mg SDV 2000 MG IRRIGATION (08:06)
--- NOTE | 2025-02-17 09:58 | PM.OP ---
Operative Report Date of procedure: February 17, 2025 Pre-op diagnosis: Primary osteoarthritis left knee Post-op diagnosis: Primary osteoarthritis left knee Post-op findings: Severe degenerative osteoarthritis with 13 degree varus deformity and slight flexion contracture Procedure done: Left total knee arthroplasty with David guidance Implants: The Soheila total knee system with a size 5 triathlon beaded cruciate retaining femur left, a triathlon titanium tibial component size 5 beaded, a triathlon X3 tibial bearing CS insert size 5 x 9 mm and a beaded triathlon titanium asymmetric patella size 32 x 10 mm Specimens removed/disposition: Bone, disposed of Pathology: None Surgeon: Ondina Mccracken MD Charge Hand: Leatha Coreas, nurse practitioner, who services were required for positioning, retraction, completion of the surgical procedure, and closure. Anesthesia: General (Intubated, ASA 3, with preoperative adductor block) and Nerve Block (Adductor block) Estimated blood loss (mL): 1,000 Tourniquet time (min): 0 (Not utilized) IV fluids (mL): 2,000 Urine output (mL): 800 Complications: None Findings: Approximately 13 degree varus deformity with slight flexion contracture. Severe degenerative osteoarthritis with osteophytes, and areas of complete denudement Condition: stable Disposition: PACU (Then admit to floor under observation status for postoperative rehabilitation and pain management) Brief History: This 69-year-old gentleman presented to the office complaining of severe pain in his left knee. Previously, he had to cancel surgery secondary to an injury to the lower extremity. This is now resolved. Preoperatively, the patient lacked approximately 5 degrees of extension and had varus deformity. After discussion, he wished to proceed with operative intervention in the form of left total knee arthroplasty. Risks and complications were discussed with him. Consents were signed and questions were answered. Procedure: The patient was brought to the operating theater, and after undergoing general anesthesia intubated, ASA 3, the left lower extremity was prepped with Dura-Prep and draped in usual fashion following placement of a tourniquet high on the leg. The leg was then draped free.? Tourniquet was not elevated throughout the surgical procedure. Prior to commencement of the procedure, a surgical pause was performed, and at the time of the surgical pause, we confirmed the site and side of surgery. Additionally, we confirmed the appropriate and timely administration of preoperative antibiotics, Ancef 2 g.? The availability of equipment was confirmed, and the patient's identity was verbalized as well. Following the surgical pause, an incision was made centering over the patella continuing proximally and distally as necessary to allow access to the knee joint. Prior to incision, assessment was made of the patient's leg, and there was noted to be a slight flexion contracture with a varus deformity of approximately 13 degrees. Dissection continued through skin and soft tissues using a scalpel. Hemostasis was obtained using electrocautery. The skin incision was followed by a median parapatellar arthrotomy. The leg was extended and the patella was able to be displaced laterally.? Appropriate arrays and markers were placed in appropriate position for use of the David.? Preoperative planning had been accomplished and was discussed in detail with the David industrial sales representative.? Intraoperative mapping of the femur and tibia was accomplished after the arrays were placed.? Internal markers were also placed.? Once we had accomplished the David mapping, we began the appropriate resections for placement of the prosthesis.? The plan was for a cruciate retaining right total knee arthroplasty. Retraction was established using manual retraction by surgical technicians and also the David leg positioner and retractors.? The knee was evaluated.? There was significant osteoarthritic change as well as a slight flexion contracture and severe varus deformity of approximately 13 degrees.? Intraoperative planning was adjusted based on this preoperative varus deformity. Appropriate bone resection was accomplished using the David.? The femur was sized to a size 5.? Following femoral cuts, attention was directed to the tibia.? Osteophytes were removed prior to this portion of the procedure.? We had performed a medial release at the beginning of the procedure to allow for placement of the array.? Proximal tibia was evaluated, and it was felt that appropriate size for the tibia was a size 5.? The size 5 tray was noted to fit nicely with good coverage.? Rim fit was accomplished with the size 5. A trial reduction was accomplished after osteophytes as well as the medial and lateral menisci had been removed.? We had removed the anterior cruciate ligament at the beginning of the case and preserved the posterior cruciate ligament.? Trial reduction was accomplished with a size 5 femoral cruciate retaining component, a size 5 tibial tray and a size 5 CS tibial bearing insert which was 9 mm thickness. Trial reduction was again accomplished with this insert, and the knee was noted to be well-balanced. Alignment was felt to be appropriate as well.? Trial components were removed after the femur had been drilled.? Prior to removal of the tibial tray which had been pinned in position with appropriate rotation as determined by the David plan, we broached the tibia.? Subsequently, the 4 drill holes were made for the prosthetic component.? All trial components were removed, and the wound was irrigated.? Plans were made for insertion of the prosthetic components.? Prior to this, the patella was manually prepared.? After resection of the articular surface with the jogging system, it was measured and measured a 32 mm patella.? We resected approximately 10 mm of patella.? Patellar height was restored with the patellar component. Once again, the wound was irrigated. The Tritanium tibia was impacted into position.? The beaded femur was then impacted into position in a cementless fashion. The CS tibial insert was placed prior to placement of the femoral component. The patella was pressed into position with a patellar clamp.? Exparel was injected about the components deep and superficially.? The knee was then copiously irrigated with betadine and saline and suctioned dry. Attention was then directed to closure. Closure was accomplished with 0 Vicryl in the fascial tissues.? The suture line of 0 Vicryl was supplemented with strata fix, #1, with a running suture from proximal to distal and a second running stitch from distal to proximal.? This was followed by Surgiflo and vancomycin powder.? Following this, a 2-0 Strata Fix was used in the subcutaneous tissues, and the skin was closed with 3-0 Strata fix.? Care was taken to assure an excellent subcutaneous as well as skin closure.? A sterile dressing was then placed consisting of Dermabond Prineo, OpSite, ABD, sterile soft roll, and an Herbert wrap including over the foot. The patient was returned the Recovery Room in a satisfactory condition. X-rays were obtained and reviewed there.? The patient will be discharged to the floor for postoperative rehabilitation and pain management. Related Problem List Diagnoses 1. Primary osteoarthritis of left knee: 2. Varus deformity, not elsewhere classified, left knee:
--- NOTE | 2025-02-17 10:26 | XRR_ITS ---
PROCEDURE INFORMATION: Exam: XR Left Knee Exam date and time: 02/17/2025 10:32 AM Age: 69 years old Clinical indication: Device placement; Joint replacement hardware; Prior surgery; Surgery date: Post-operative (0-2 days); Surgery type: Left knee; Additional info: Status post left total knee arthroplasty TECHNIQUE: Imaging protocol: Radiologic exam of the left knee. Views: 1 or 2 views. COMPARISON: CT knee LT [facility] [id number] 02/11/2025 10:59 AM FINDINGS: Bones/joints: Total knee arthroplasty is in expected position. No acute fracture. Soft tissues: Normal. XR/XR knee LT 1-2V [id number] IMPRESSION: Postoperative changes from total knee arthroplasty without evidence of acute osseous abnormality.
[2025-02-17] MEDS: fentaNYL 50 mcg/mL INJ 2mL IVP (10:48)
--- NOTE | 2025-02-17 11:05 | ANE.PACU2 ---
Inpatient post-anesthesia follow up: Airway intact: Yes Vital signs: Temperature 97.6 F Pulse Rate 88 Respiratory Rate 18 Blood Pressure 117/85 Pulse Oximetry 93 Oxygen Delivery Me thod Room Air Oxygen Flow Rate 2 Fraction of Inspir ed Oxygen Hydration adequate: Yes Nausea and vomiting: No Pain level: 1 Mental status: Baseline
[2025-02-17] MEDS: oxyCODONE 5 mg IR Tab/Cap PO ×2 (13:03→17:49)
[2025-02-17] MEDS: tranexamic acid 1,000 MG/100 ML PREMIX 600 MG IV (13:29)
[2025-02-17] MEDS: sennosides-docusate Tablet 2 TAB PO (17:49)
[2025-02-17] MEDS: chlorhexidine gluconate 0.12% Btl 473 mL 30 ML MUCOUS MEM ×2 (17:56→20:48)
[2025-02-18] VITALS (8 sets, daily range): BP systolic 109–137; BP diastolic 56–82; PULSE 77–98; RESP 15–18; TEMP 36.3–37.1; O2SAT 90–95
[2025-02-18] MEDS: acetaminophen 1,000 MG/100 ML PIGGYBACK 400 MG IV (03:34)
[2025-02-18 05:59] LABS: Hematocrit 32.4 % (37-53); Hemoglobin 10.80 g/dL (11.27-16.99); Mean Corpuscular HGB Conc 33.3 g/dL (30-55); Mean Corpuscular Hemoglobin 30.2 pg (27-33); Mean Corpuscular Volume 90.5 fl (82-101); Nucleated Red Blood Cells % 0 %; Platelet Count 125 10^3/cmm (157-399); Red Blood Count 3.58 10^6/uL (3.85-5.65); White Blood Count 12.97 10^3/uL (3.29-11.43)
[2025-02-18 06:19] LABS: Anion Gap 15.1 (5-19); Blood Urea Nitrogen 15 mg/dL (8-23); Calcium 8.2 mg/dL (8.5-10.5); Carbon Dioxide 23 mmol/L (22-29); Chloride 99 mmol/L (98-107); Creatinine Clr Calc Pharmacy 86.3324; Glucose 108 mg/dL (65-115); Osmolality Calculated 277 mOsm/kg (285-295); Potassium 4.1 mmol/L (3.5-5.1); Sodium 133 mmol/L (136-145)
[2025-02-18] MEDS: multivitamin therapeutic Tablet 1 TAB PO (08:49)
[2025-02-18] MEDS: sennosides-docusate Tablet 2 TAB PO (08:49)
[2025-02-18] MEDS: chlorhexidine gluconate 0.12% Btl 473 mL 30 ML MUCOUS MEM ×2 (08:50→12:11)
[2025-02-18] MEDS: ceFAZolin 2,000 mg SDV 2000 MG IVP (08:51)
[2025-02-18] MEDS: mupirocin oint 22 gm 1 APPLIC NASAL (08:51)
--- NOTE | 2025-02-18 09:25 | PC.PHAR ---
Addendum entered by Melissa Winter 02/18/25 11:01: Pt verified Lanoxin 0.25mg is 1/2 tablet daily, Prozac is 60mg daily, Advair should be 250-50, and Ropinerole is 2mg in am and 6 mg in pm. Addendum entered by Melissa Winter 02/18/25 09:31: Correction Advair 250-50, not 250-500. Original Note: [facility] verified pt medications-some of which are different from medications verified on admit. Lanoxin 0.25mg should be 1 tablet daily instead of 1/2 tablet daily, Prozac should be 60mg qam instead of 20mg qam, Advair should be 250-500 1 inhalation bid instead of 100-50, Ropinerole 2mg should be 2mg in am and 6mg in pm instead of 2mg daily. Will follow up after speaking directly to pt.
--- NOTE | 2025-02-18 09:55 | PC.CHAP ---
Pastoral Care Encounter/Spiritual Assessment Type of Contact [] Declined ag service manager visit [] Patient/Family/Request visit [] Outpatient visit [] Follow-up visit [] Physician referral [] Code/Alert [x] Routine visit [] Staff referral [] Actively dying [] Patient sleeping [] Family support [] [] Out of room [] Palliative care [] [] Receiving care in room [] Pre-surgical visit [] Trauma [] Long length of stay [] ICU visit [] Other: Relational/Emotional Strength [x] Patient feels connected with others/family/visitors/staff [] Distress [] Loneliness/isolation [] Abandonment Spirituality of Patient [x] Person of Cheryl [x] Attends Congregational of their Cheryl [x] Believes in Prayer [] Reads Bible or Spiritism materials [] There are Spiritual issues to be addressed Animal Attendant Interventions [x] Prayer [x] Active listening [] Non-anxious presence [x] Spiritual/emotional support [] Crisis/trauma care [] Spiritual counseling [] Bereavement support [] Provided bereavement packet [] Provided Bible/devotional materials [] Provided toy/stuffed animal, coloring book to patient or family member [] Provided Communion [] Anointing/Mathews [] Salvation [x] Completed spiritual assessment [] Other: Impact on Illness or Injury [] Angry [] Fearful [] Anxious [] Often cries [] Exhaustion [] Unable to work [] Unable to attend druze [] Unable to walk/stand [] Unable to read [] Unable to drive [] Unable to eat/drink [] Unable to sleep [] Unable to be with family [] Patient intubated [] Other: Summary Time spent with patient 5 min
--- NOTE | 2025-02-18 12:59 | PM.DCS ---
Discharge Providers Date of Admission: 02/17/25 09:50 Date of Discharge: February 18, 2025 Attending Provider at Admission: Ondina Mccracken MD Attending Provider at Discharge: Ondina Mccracken MD Consults: None Primary Care Provider: RA Ferrer Diagnoses at Discharge Discharge Diagnosis 1. Primary osteoarthritis of left knee: 2. Varus deformity, not elsewhere classified, left knee: 3. 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 Previously, he had to cancel surgery secondary to an injury to the lower extremity. This is now resolved. Preoperatively, the patient lacked approximately 5 degrees of extension and had varus deformity. After discussion, he wished to proceed with operative intervention in the form of left total knee arthroplasty. Risks and complications were discussed with him. Consents were signed and questions were answered. Hospital Course Hospital Course This 69-year-old gentleman was admitted under observation status following left total knee arthroplasty without cement. He did well postoperatively. He was independent in his activities of daily living. The patient wished to be discharged to home, and he was felt safe from a physical therapy perspective. Dressing was dry and intact after the large outer dressing was removed. There was no evidence of DVT. He was neurologically intact. Physical Exam Const: COMMON NORMALS: no acute distress, average body habitus, patient oriented x3 and alert GENERAL APPEARANCE: cooperative and comfortable ORIENTATION/CONSCIOUSNESS: Yes awake HENMT: COMMON NORMALS: normocephalic and atraumatic HEAD & SCALP: normocephalic and atraumatic Eye: GENERAL EYE: appearance normal, both eyes and all related structures Chest: COMMONS NORMALS: normal inspection of the chest Resp: COMMON NORMALS: normal respiratory effort EFFORT & INSPECTION: Yes able to speak in complete sentences and Yes symmetric chest movement Extremity: LEFT LOWER EXTREMITY: Yes knee joint (Large outer dressing removed) Left knee: Yes inspection (Minimal ecchymosis), Yes palpation (Slight tenderness), Yes ROM (Not evaluated) and Yes neurovascular exam (Intact distally with no evidence of DVT) Neuro: COMMON NORMALS: patient oriented x3 SENSORIUM/ORIENTATION: Yes alert Psych: COMMON NORMALS: mental status grossly normal APPEARANCE: Yes grossly normal ATTITUDE: Yes calm and Yes engaged ATTENTION/CONCENTRATION: Yes attention grossly intact Skin: COMMON NORMALS: no rashes or lesions noted GENERAL SKIN EXAM: no rashes or lesions noted Urinary Catheter Management: Tovar: Cath Placed During This Visit: yes, but has since been removed by the nurse Reason for Continuing Indwelling Catheter: Decision to DC Catheter Urinary Catheter Date of Insertion: 02/17/25 Urinary Catheter Time of Insertion: 07:30 Date Urinary Catheter Removed: 02/18/25 Time Urinary Catheter Discontinued: 03:45 Discharge Data Studies Completed and Pending Completed Studies During Hospitalization Category Date Time Status XR knee LT 1-2V 20390 Routine Exams 02/17/25 10:26 Completed Radiology Impressions Knee X-Ray 02/17/25 10:26 IMPRESSION: Postoperative changes from total knee arthroplasty without evidence of acute osseous abnormality. Laboratory Results WBC 12.97 10^3/uL (3.29-11.43) H 02/18/25 05:30 RBC 3.58 10^6/uL (3.85-5.65) L 02/18/25 05:30 Hgb 10.80 g/dL (11.27-16.99) L 02/18/25 05:30 Hct 32.4 % (37-53) L 02/18/25 05:30 MCV 90.5 fl (82-101) 02/18/25 05:30 MCH 30.2 pg (27-33) 02/18/25 05:30 MCHC 33.3 g/dL (30-55) 02/18/25 05:30 RDW 14.0 % (12.1-15.1) 02/18/25 05:30 Plt Count 125 10^3/cmm (157-399) L 02/18/25 05:30 MPV 11.2 fL (7.4-10.4) H 02/18/25 05:30 Neut % (Auto) 83.8 % 02/18/25 05:30 Lymph % (Auto) 7.2 % 02/18/25 05:30 [place] % (Auto) 8.6 % 02/18/25 05:30 Eos % (Auto) 0.0 % 02/18/25 05:30 Baso % (Auto) 0.1 % 02/18/25 05:30 Neut # (Auto) 10.87 10^3/uL (1.8-7.7) H 02/18/25 05:30 Lymph # (Auto) 0.9 10^3/uL (0.8-4.8) 02/18/25 05:30 [place] # (Auto) 1.1 10^3/uL (0.2-0.9) H 02/18/25 05:30 Eos # (Auto) 0.0 10^3/uL (0.0-0.8) 02/18/25 05:30 Baso # (Auto) 0.0 10^3/uL (0.0-0.1) 02/18/25 05:30 Nucleated RBC % (auto) 0 % 02/18/25 05:30 Nucleated RBCs # 0.0 /100WBC 02/18/25 05:30 Sodium 133 mmol/L (136-145) L 02/18/25 05:30 Potassium 4.1 mmol/L (3.5-5.1) 02/18/25 05:30 Chloride 99 mmol/L (98-107) 02/18/25 05:30 Carbon Dioxide 23 mmol/L (22-29) 02/18/25 05:30 Anion Gap 15.1 (5-19) 02/18/25 05:30 BUN 15 mg/dL (8-23) 02/18/25 05:30 Creatinine 0.9 mg/dL (0.7-1.2) 02/18/25 05:30 GFR Calculation 84.2 mL/min (90-130) L 02/18/25 05:30 Glucose 108 mg/dL (65-115) 02/18/25 05:30 Calculated Osmolality 277 mOsm/kg (285-295) L 02/18/25 05:30 Calcium 8.2 mg/dL (8.5-10.5) L 02/18/25 05:30 Vitals Last Vital Signs Temp 98.0 F 02/18/25 12:36 Pulse 96 02/18/25 12:36 Resp 17 02/18/25 12:36 BP 137/82 02/18/25 12:36 Pulse Ox 95 02/18/25 12:36 O2 Del Method Room Air 02/18/25 11:02 O2 Flow Rate 2 02/17/25 13:21 Discharge Plan Discharge Patient Disposition: Home Health Service Condition: Stable Prescriptions: New acetaminophen 500 mg Tablet 1,000 mg PO Q8H 15 Days Qty: 90 0RF oxycodone 5 mg Tablet 5 mg PO Q4H PRN (Reason: Moderate To Severe Pain) 7 Days Qty: 40 0RF Continued Xarelto 20 mg tablet 20 mg PO QPM digoxin 250 mcg (0.25 mg) tablet 125 mcg PO DAILY@0530 Qty: 90 1RF (DME) CPAP Device See Rx Instructions .Route Rx Instructions: As directed tiotropium bromide [Spiriva with HandiHaler] 18 mcg capsule, w/inhalation device 1 cap inhalation DAILY Rx Instructions: puncture 1 cap using device; one dose = 2 inhalations cetirizine 10 mg tablet 10 mg PO DAILY PRN (Reason: allergies) ropinirole 2 mg tablet See Rx Instructions .ROUTE .COMPLEX Rx Instructions: Take 1 tablet by mouth in the morning and 6 mg in the evening. magnesium oxide 500 mg magnesium tablet 500 mg PO DAILY epinephrine [EpiPen 2-Danish] 0.3 mg/0.3 mL auto-injector 0.3 mg IM Q4H PRN (Reason: anaphylaxis) Qty: 2 0RF atorvastatin 40 mg Tablet 20 mg PO BEDTIME cyanocobalamin (vitamin B-12) 100 mcg Tablet 100 mcg PO DAILY thiamine HCl (vitamin B1) 100 mg Tablet 100 mg PO DAILY fluoxetine 20 mg Capsule 60 mg PO DAILY metoprolol tartrate 50 mg Tablet 25 mg PO BID cholecalciferol (vitamin D3) 100 mcg (4,000 unit) tablet 200 mcg PO DAILY fluticasone propionate 50 mcg/actuation spray,suspension 1 spray INTRANASAL DAILY PRN (Reason: allergies) fluticasone propion-salmeterol [Wixela Inhub] 250-50 mcg/dose Blister With Device 1 inh INHALATION BID albuterol sulfate 90 mcg/actuation Hfa Aerosol Inhaler 2 puff INHALATION QID PRN (Reason: asthma) tadalafil 10 mg Tablet 10 mg PO .WEEKLY PRN (Reason: Erectile Dysfunction) Rx Instructions: administer approximately 30min before sexual activity; do not use more than 1 dose per 24hrs Discharge Order = DC NOW: Discharge Order (Routine); Ordered 02/18/25 Ordered By: Ondina Mccracken Referrals: [facility] [Outside] Ondina Mccracken MD [Physician, Orthopedics] - 03/02/25 2:45 pm Discharge Diet: Advance as tolerated and Usual diet Discharge Activity: Increase activity as tolerated, Limit activity as instructed, Use walker/crutches as instructed and As per PT/OT instructions Patient Instructions: Acetaminophen (By mouth), Acute Wound Care (DC), Opioid Safety, Post Anesthesia Care, Patient Portal & Mookie Instructions Activity Restrictions/Additional Instructions: Ice to left knee. Weightbearing as tolerated. You may shower and get the knee wet, but do not soak it in lakes, ponds, gifford, or pool. Gait training, ambulation, and strengthening per physical therapy. Discharge Attestations Time Spent in Discharge Care*: greater than 30 min Specific Discharge Activities: educating patient, documenting/other paperwork and evaluating patient/reviewing data Quality Metrics Clinical Quality Measures [ No reported AMI, CVA or VTE this stay] Coding Level of Care Code Acute Code for Chg Fwd Diagnoses Primary osteoarthritis of left knee M17.12 Varus deformity, not elsewhere classified, left knee M21.162 Status post total left knee replacement not using cement Z96.652
[2025-02-18] MEDS: oxyCODONE 5 mg IR Tab/Cap PO (13:21)
== END 2025-02-18 13:32 | disposition home health service (06) ==
LOC: MEDSURG 09:50
PROVIDERS: Admitting Provider Specialist; PCP Nurse Practitioner; Visit Provider Specialist
PROC: 8E0Y0CZ Robotic Assisted Procedure of Lower Extremity, Open Approach (ICD-10-PCS; CPT 27447; principal; 2025-02-17 07:00)
DX: M17.12 Unilateral primary osteoarthritis, left knee (principal); M21.162 Varus deformity, not elsewhere classified, left knee; J45.909 Unspecified asthma, uncomplicated; G47.33 Obstructive sleep apnea (adult) (pediatric); Z99.89 Dependence on other enabling machines and devices; E66.9 Obesity, unspecified; Z68.36 Body mass index [BMI] 36.0-36.9, adult; E78.5 Hyperlipidemia, unspecified; F43.10 Post-traumatic stress disorder, unspecified; Z91.014 Allergy to mammalian meats; I48.91 Unspecified atrial fibrillation; Z79.01 Long term (current) use of anticoagulants; F17.220 Nicotine dependence, chewing tobacco, uncomplicated
CPT/HCPCS: 27447; 20985; 36415; 51702; 73560; 80048; 85025; 94640; 97110; 97116; 97161; 97165; 97530; A4216; C1776; G0378; J0131; J0330; J0690; J1100; J1171; J2250; J2371; J2795; J3010; J3373; J3490; J7030; J7626; J7644; J9999

== ENCOUNTER → 2025-03-02 13:15 | Outpatient (BNVA) | payer OTHER, SELFPAY | PROVIDERS: PCP Nurse Practitioner; Visit Provider Specialist | DX: Z98.890 Other specified postprocedural states (principal); Z96.652 Presence of left artificial knee joint | CPT/HCPCS: 73560; 73565; 99024 ==

== ENCOUNTER → 2025-06-01 12:49 | Outpatient (BNVA) | payer OTHER, SELFPAY | PROVIDERS: PCP Nurse Practitioner; Visit Provider Specialist | DX: Z47.89 Encounter for other orthopedic aftercare (principal); Z96.652 Presence of left artificial knee joint | CPT/HCPCS: 73560; 73565; 99213 ==